=== PATIENT | male | born 1965 | race Caucasian/White ===

== ENCOUNTER 2023-02-23 11:36 | Inpatient (IN) | payer OTHER ==
[2023-02-23] MEDS ORDERED: ATORVASTATIN CA 80 MG TABLET (FP) PO ONE (12:29)
[2023-02-23] MEDS ORDERED: ASPIRIN 81 MG CHEWABLE TABLETS PO ONE (12:29)
[2023-02-23 12:30] LABS: INR 1.04 (0.83-1.09); PROTHROMBIN TIME (PATIENT) 12.1 SEC (9.7-13.0)
[2023-02-23 12:36] LABS: BASO % 0.6 % (0-2.0); EOS % 2.4 % (0-4.5); HEMATOCRIT 48.7 % (35.4-49); HEMOGLOBIN 16.4 GM/dL (11.7-16.9); LYMPH % 15.7 % (8-40); MCH 30.2 pg (25.7-33.7); MCHC 33.6 g/dl (32.0-35.9); MEAN CELL VOLUME 89.9 fl (80-96); MEAN PLT VOLUME 8.6 fl (7.5-11.1); MONO % 7.3 % (3.8-10.2); PLATELET COUNT 375 10^3/uL (134-434); RBC 5.42 M/mm3 (4.00-5.60); WHITE BLOOD COUNT 12.2 K/mm3 (4.0-10.0)
[2023-02-23] MEDS ORDERED: ASPIRIN COATED 81 MG TABLET.EC ONE (12:36)
[2023-02-23 12:45] LABS: POTASSIUM 5.6 mmol/L (3.5-5.1)
[2023-02-23 12:47] LABS: ALBUMIN 3.8 g/dl (3.4-5.0); CALCIUM 9.2 mg/dL (8.5-10.1)
[2023-02-23 12:48] LABS: BLOOD UREA NITROGEN 7.4 mg/dL (7-18)
[2023-02-23 12:51] LABS: PH,URINE 6.5 (5.0-8.0); URINE APPEARANCE CLEAR; URINE BILIRUBIN NEGATIVE (NEGATIVE); URINE COLOR YELLOW; URINE GLUCOSE (UA) NEGATIVE (NEGATIVE); URINE KETONE NEGATIVE (NEGATIVE); URINE LEUK ESTERASE NEGATIVE (NEGATIVE); URINE NITRITE NEGATIVE (NEGATIVE); URINE PROTEIN NEGATIVE (NEGATIVE); URINE UROBILINOGEN 0.2 mg/dL (0.2-1.0)
[2023-02-23 12:51] LABS: CREATININE 1.2 mg/dL (0.55-1.3)
[2023-02-23 12:52] LABS: TOT PROT 8.5 g/dl (6.4-8.2)
[2023-02-23 12:54] LABS: BILIRUBIN,TOTAL 0.8 mg/dL (0.2-1)
[2023-02-24 06:19] LABS: BASO % 0.8 % (0-2.0); EOS % 4.6 % (0-4.5); HEMATOCRIT 47.1 % (35.4-49); HEMOGLOBIN 15.4 GM/dL (11.7-16.9); LYMPH % 19.6 % (8-40); MCH 29.8 pg (25.7-33.7); MCHC 32.6 g/dl (32.0-35.9); MEAN CELL VOLUME 91.3 fl (80-96); MEAN PLT VOLUME 8.5 fl (7.5-11.1); MONO % 8.6 % (3.8-10.2); NEUT % 66.4 % (42.8-82.8); PLATELET COUNT 380 10^3/uL (134-434); RBC 5.17 M/mm3 (4.00-5.60); RDW 13.8 % (11.9-15.9); WHITE BLOOD COUNT 10.7 K/mm3 (4.0-10.0)
[2023-02-24 06:27] LABS: POTASSIUM 4.4 mmol/L (3.5-5.1)
[2023-02-24 06:30] LABS: ALBUMIN 3.6 g/dl (3.4-5.0); CALCIUM 8.8 mg/dL (8.5-10.1)
[2023-02-24 06:31] LABS: BLOOD UREA NITROGEN 12.8 mg/dL (7-18)
[2023-02-24 06:32] LABS: PHOSPHOROUS 4.4 mg/dL (2.5-4.9)
[2023-02-24 06:34] LABS: CREATININE 0.9 mg/dL (0.55-1.3)
[2023-02-24 06:35] LABS: BILIRUBIN,TOTAL 0.8 mg/dL (0.2-1)
[2023-02-24 06:36] LABS: TOT PROT 7.7 g/dl (6.4-8.2)
[2023-02-24] MEDS: ASPIRIN COATED 81 MG TABLET.EC PO SCH (09:54)
[2023-02-24] MEDS: ENOXAPARIN NA (PORCINE) 40 MG/0.4 ML DISP.SYRIN SQ SCH (09:54)
[2023-02-24] MEDS: ATORVASTATIN CA 80 MG TABLET (FP) PO SCH (21:20)
[2023-02-25 02:41] VITALS: BMI 32.1
[2023-02-25] MEDS: ENOXAPARIN NA (PORCINE) 40 MG/0.4 ML DISP.SYRIN SQ SCH (09:29)
[2023-02-25] MEDS: ASPIRIN COATED 81 MG TABLET.EC PO SCH (09:29)
[2023-02-25] MEDS ORDERED: CYANOCOBALAMIN (VITAMIN B-12) 1000 MCG/1 ML VIAL IM SCH (15:00)
[2023-02-25] MEDS: CLOPIDOGREL BISULFATE 75 MG TABLET (FP) PO SCH (15:05)
[2023-02-25] MEDS: ATORVASTATIN CA 80 MG TABLET (FP) PO SCH (22:26)
[2023-02-26 07:48] LABS: HEMATOCRIT 46.8 % (35.4-49); HEMOGLOBIN 15.9 GM/dL (11.7-16.9); MCH 30.5 pg (25.7-33.7); MEAN CELL VOLUME 89.8 fl (80-96); PLATELET COUNT 366 10^3/uL (134-434); RBC 5.21 M/mm3 (4.00-5.60); RDW 13.9 % (11.9-15.9); WHITE BLOOD COUNT 10.4 K/mm3 (4.0-10.0)
[2023-02-26 08:16] LABS: POTASSIUM 4.4 mmol/L (3.5-5.1)
[2023-02-26 08:21] LABS: BLOOD UREA NITROGEN 14.4 mg/dL (7-18); CALCIUM 8.5 mg/dL (8.5-10.1)
[2023-02-26 08:25] LABS: CREATININE 1.1 mg/dL (0.55-1.3); PHOSPHOROUS 4.1 mg/dL (2.5-4.9)
[2023-02-26] MEDS: ENOXAPARIN NA (PORCINE) 40 MG/0.4 ML DISP.SYRIN SQ SCH (10:42)
[2023-02-26] MEDS: CLOPIDOGREL BISULFATE 75 MG TABLET (FP) PO SCH (10:43)
[2023-02-26] MEDS: ASPIRIN COATED 81 MG TABLET.EC PO SCH (10:43)
[2023-02-26] MEDS: ATORVASTATIN CA 80 MG TABLET (FP) PO SCH (21:08)
[2023-02-27 06:54] LABS: HEMOGLOBIN 15.1 GM/dL (11.7-16.9); MCH 29.7 pg (25.7-33.7); MCHC 32.2 g/dl (32.0-35.9); MEAN PLT VOLUME 8.8 fl (7.5-11.1); PLATELET COUNT 370 10^3/uL (134-434); RBC 5.11 M/mm3 (4.00-5.60); RDW 13.6 % (11.9-15.9); WHITE BLOOD COUNT 10.3 K/mm3 (4.0-10.0)
[2023-02-27 07:10] LABS: POTASSIUM 4.5 mmol/L (3.5-5.1)
[2023-02-27 07:19] LABS: BLOOD UREA NITROGEN 16.2 mg/dL (7-18)
[2023-02-27 07:20] LABS: ALBUMIN 3.5 g/dl (3.4-5.0)
[2023-02-27 07:24] LABS: BILIRUBIN,TOTAL 0.6 mg/dL (0.2-1); TOT PROT 7.5 g/dl (6.4-8.2)
[2023-02-27] MEDS: LACTULOSE 20 GM/30 ML UDC (FOR ORAL USE ONLY) PO SCH ×2 (09:46→13:53)
[2023-02-27] MEDS: CLOPIDOGREL BISULFATE 75 MG TABLET (FP) PO SCH (09:46)
[2023-02-27] MEDS: ENOXAPARIN NA (PORCINE) 40 MG/0.4 ML DISP.SYRIN SQ SCH (09:46)
[2023-02-27] MEDS: ASPIRIN COATED 81 MG TABLET.EC PO SCH (09:46)
[2023-02-27] MEDS ORDERED: CYANOCOBALAMIN (VITAMIN B-12) 1000 MCG/1 ML VIAL IM SCH (10:00)
[2023-02-27 13:07] LABS: BASO % 0.7 % (0-2.0); EOS % 5.1 % (0-4.5); HEMOGLOBIN 15.4 GM/dL (11.7-16.9); LYMPH % 27.7 % (8-40); MCH 29.6 pg (25.7-33.7); MCHC 32.8 g/dl (32.0-35.9); MEAN CELL VOLUME 90.1 fl (80-96); MEAN PLT VOLUME 8.8 fl (7.5-11.1); MONO % 11.1 % (3.8-10.2); NEUT % 55.4 % (42.8-82.8); PLATELET COUNT 351 10^3/uL (134-434); RBC 5.21 M/mm3 (4.00-5.60); RDW 13.7 % (11.9-15.9); WHITE BLOOD COUNT 10.2 K/mm3 (4.0-10.0)
[2023-02-27 14:45] VITALS: BP 124/82; PULSE 82; RESP 18; TEMP 98.1
== END 2023-02-27 18:41 | disposition home or self-care (01) | DRG 45 ==
LOC: JER 11:36 → JERBED 15:23 → J4W 02-24 20:07 → OBSVTOIN 02-26 09:16
PROVIDERS: ADMIT Internal Medicine; ATTEND Internal Medicine
DX: I63.89 Other cerebral infarction (principal); R29.703 NIHSS score 3; E53.8 Deficiency of other specified B group vitamins; E87.5 Hyperkalemia; I69.351 Hemiplegia and hemiparesis following cerebral infarction affecting right dominant side
CPT/HCPCS: 36415; 70450-TC; 70544-TC; 70548-TC; 70551-TC; 76705-TC; 80048; 80053; 80061; 80307; 81003; 82136; 82140; 82550; 82553; 82607; 82962; 83036; 83735; 83918; 84100; 84425; 84484; 85025; 85027; 85610; 85730; 93005; 93010; 93306-TC; 93880-TC; 97116-GP; 97162-GP; 99285-25; G0378

== ENCOUNTER 2024-03-19 22:13 | Observation (INO) | payer OTHER ==
[2024-03-19] MEDS ORDERED: ALBUTEROL SO4 2.5/IPRATROPIUM 0.5 INH SOL 3 ML VIAL.NEB. NEB ONE (22:55)
[2024-03-19] MEDS: ALBUTEROL SO4 2.5/IPRATROPIUM 0.5 INH SOL 3 ML VIAL.NEB. NEB ONE (23:10)
[2024-03-19] MEDS ORDERED: AZITHROMYCIN IVPB 500 MG/250 ML BAG IVPB ONE (23:11)
[2024-03-19] MEDS ORDERED: CEFTRIAXONE 1 GM/50 ML BAG ONE (23:11)
[2024-03-19] MEDS: AZITHROMYCIN IVPB 500 MG in DEXTROSE 5%-WATER - 250 ML IVPB ONE (23:12)
[2024-03-19 23:18] LABS: BASO % 0.8 % (0-2.0); EOS % 9.2 % (0-4.5); HEMOGLOBIN 16.7 GM/dL (11.7-16.9); LYMPH % 26.4 % (8-40); MCH 27.5 pg (25.7-33.7); MCHC 32.8 g/dl (32.0-35.9); MONO % 8.9 % (3.8-10.2); NEUT % 54.7 % (42.8-82.8); PLATELET COUNT 366 10^3/uL (134-434); RBC 6.07 M/mm3 (4.00-5.60); RDW 13.3 % (11.9-15.9); WHITE BLOOD COUNT 11.1 K/mm3 (4.0-10.0)
[2024-03-19 23:21] LABS: VENOUS BASE EXCESS 0.5 mmol/L (-2-2); VENOUS O2 SATURATION 90.7 % (70-80); VENOUS PCO2 45.3 mmHg (38-52); VENOUS PH 7.379 (7.310-7.410)
[2024-03-19 23:35] LABS: INR 0.97 (0.83-1.09); PROTHROMBIN TIME (PATIENT) 11.2 SEC (9.7-13.0)
[2024-03-19 23:37] LABS: ACTIVATED PTT 28.1 SECONDS (25.2-36.5)
[2024-03-20 00:39] LABS: CHLORIDE 107 mmol/L (98-107); POTASSIUM 4.3 mmol/L (3.5-5.1); SODIUM 139 mmol/L (136-145)
[2024-03-20 00:41] LABS: ALBUMIN 3.8 g/dl (3.4-5.0); ANION GAP 6 mmol/L (4-13); BLOOD UREA NITROGEN 14.4 mg/dL (7-18); CALCIUM 9.3 mg/dL (8.5-10.1); CO2 27 mmol/L (21-32); GLUCOSE,RANDOM 173 mg/dL (74-106)
[2024-03-20 00:44] LABS: CREATININE 1.1 mg/dL (0.55-1.3); SGOT/AST 59 U/L (15-37); SGPT/ALT 82 U/L (13-61)
[2024-03-20 00:47] LABS: ALK PHOS 125 U/L (45-117); BILIRUBIN,TOTAL 0.4 mg/dL (0.2-1); TOT PROT 7.9 g/dl (6.4-8.2)
[2024-03-20 00:50] LABS: N-TERMINAL BNP < 5.0 pg/ml (5-125)
[2024-03-20 00:50] LABS: LACTIC ACID 2.1 mmol/L (0.4-2.0)
[2024-03-20] MEDS: SODIUM CHLORIDE 0.9% 500 ML INFUS.BAG IV ONE (01:13)
[2024-03-20] MEDS ORDERED: ALBUTEROL SO4 2.5/IPRATROPIUM 0.5 INH SOL 3 ML VIAL.NEB. NEB PRN (04:25)
[2024-03-20 05:56] VITALS: BMI 33.1
[2024-03-20] MEDS: INSULIN ASPART SLIDING SCALE (NOVOLOG) 1 VIAL SQ SCH (06:53)
[2024-03-20 08:36] LABS: HEMOGLOBIN 15.2 GM/dL (11.7-16.9); MCH 27.3 pg (25.7-33.7); MCHC 31.8 g/dl (32.0-35.9); MEAN PLT VOLUME 9.3 fl (7.5-11.1); PLATELET COUNT 266 10^3/uL (134-434); RBC 5.57 M/mm3 (4.00-5.60); WHITE BLOOD COUNT 9.1 K/mm3 (4.0-10.0)
[2024-03-20 08:48] LABS: POTASSIUM 4.5 mmol/L (3.5-5.1)
[2024-03-20 09:04] LABS: ALBUMIN 3.5 g/dl (3.4-5.0); BLOOD UREA NITROGEN 11.1 mg/dL (7-18); CALCIUM 8.7 mg/dL (8.5-10.1)
[2024-03-20 09:08] LABS: CREATININE 0.9 mg/dL (0.55-1.3)
[2024-03-20 09:09] LABS: BILIRUBIN,TOTAL 0.3 mg/dL (0.2-1); PHOSPHOROUS 4.1 mg/dL (2.5-4.9); TOT PROT 7.2 g/dl (6.4-8.2)
[2024-03-20] MEDS: ENOXAPARIN NA (PORCINE) 40 MG/0.4 ML DISP.SYRIN SQ SCH (11:05)
[2024-03-20] MEDS: methylPREDNISolone NA SUCC 40 MG/1 ML VIAL IVPUSH SCH (11:05)
[2024-03-20] MEDS: DOXYCYCLINE INJECTION 100 MG in DEXTROSE 5%-WATER 100 ML IVPB SCH (11:05)
[2024-03-20] MEDS: CEFTRIAXONE 1 G/50 ML PREMIX 50 ML IVPB SCH (11:05)
[2024-03-20 11:50] LABS: PH,URINE 5.5 (5.0-8.0); URINE APPEARANCE CLEAR; URINE BILIRUBIN NEGATIVE (NEGATIVE); URINE COLOR YELLOW; URINE GLUCOSE (UA) NEGATIVE (NEGATIVE); URINE KETONE NEGATIVE (NEGATIVE); URINE LEUK ESTERASE NEGATIVE (NEGATIVE); URINE NITRITE NEGATIVE (NEGATIVE); URINE PROTEIN NEGATIVE (NEGATIVE); URINE UROBILINOGEN 0.2 mg/dL (0.2-1.0)
[2024-03-20 14:23] VITALS: BP 123/75; PULSE 96; RESP 18; TEMP 98.2
[2024-03-20 16:44] LABS: HIV INTERPRETATION NEGATIVE (NEGATIVE)
== END 2024-03-20 14:26 | disposition home or self-care (01) ==
LOC: JER 22:13 → UNDOADMOB 03-20 01:10 → JERBED 03-20 01:10 → J7W 03-20 04:05 → JERBED 03-20 04:05 → INTOOBSV 03-20 04:22 → OBSVTOIN 03-20 04:22 → J7W 03-20 06:22 → JERBED 03-20 10:04
PROVIDERS: ADMIT Internal Medicine; ATTEND Internal Medicine
PROC: 3E03329 Introduction of Other Anti-infective into Peripheral Vein, Percutaneous Approach (ICD-10-PCS; principal; 2024-03-20)
PROC: 3E023GC Introduction of Other Therapeutic Substance into Muscle, Percutaneous Approach (ICD-10-PCS; 2024-03-20)
PROC: 3E013VG Introduction of Insulin into Subcutaneous Tissue, Percutaneous Approach (ICD-10-PCS; 2024-03-20)
PROC: 3E0337Z Introduction of Electrolytic and Water Balance Substance into Peripheral Vein, Percutaneous Approach (ICD-10-PCS; 2024-03-20)
PROC: 3E033GC Introduction of Other Therapeutic Substance into Peripheral Vein, Percutaneous Approach (ICD-10-PCS; 2024-03-20)
DX: J21.9 Acute bronchiolitis, unspecified (principal); J96.01 Acute respiratory failure with hypoxia; E11.65 Type 2 diabetes mellitus with hyperglycemia; K76.0 Fatty (change of) liver, not elsewhere classified; Z86.73 Personal history of transient ischemic attack (TIA), and cerebral infarction without residual deficits; R94.5 Abnormal results of liver function studies; E66.9 Obesity, unspecified; Z72.0 Tobacco use; Z99.81 Dependence on supplemental oxygen
CPT/HCPCS: 0241U-QW; 36415; 71045-TC-FY; 71250-TC; 80053; 81003; 82803; 82962; 83036; 83605; 83735; 83880; 84100; 84439; 84443; 84484; 85025; 85027; 85610; 85730; 87070; 87205; 87389; 87899; 93005; 93010; 94640; 96365; 96367; 96368; 96372; 96375; 99285-25; G0378